=== PATIENT | female | born 1960 | race Asian ===

== ENCOUNTER 2018-01-30 03:54 | Emergency (ER) | payer OTHER ==
[~2018-01-30] VITALS: Ht 165.1 cm; Wt 71.8 kg
[~2018-01-30 03:54] MED LIST: CHOL200018 PO; LOSA25TA21 PO; METF500T4 PO; SIMV-260 PO
[2018-01-30] MEDS ORDERED: GLIP5 PO (04:15)
[2018-01-30 05:07] VITALS: BP 151/87
== END 2018-01-30 05:49 | disposition home or self-care (01) ==
LOC: EMS 03:56
DX: S42.291A Other displaced fracture of upper end of right humerus, initial encounter for closed fracture (principal); S10.93XA Contusion of unspecified part of neck, initial encounter; E11.9 Type 2 diabetes mellitus without complications; E78.00 Pure hypercholesterolemia, unspecified; I10 Essential (primary) hypertension; V43.52XA Car driver injured in collision with other type car in traffic accident, initial encounter; Y93.89 Activity, other specified; Y92.89 Other specified places as the place of occurrence of the external cause; Y99.8 Other external cause status
CPT/HCPCS: 29105; 72125; 82962; 99284